=== PATIENT | female | born 1945 | race Caucasian/White ===

== ENCOUNTER 2017-09-04 08:11 | Outpatient (CLI) | payer MEDICARE, OTHER | END 2017-09-04 08:12 | disposition home or self-care (01) | LOC: BICMAMMO 08:11 | PROVIDERS: ATTEND Family Medicine | DX: Z12.31 Encounter for screening mammogram for malignant neoplasm of breast (principal); R92.1 Mammographic calcification found on diagnostic imaging of breast | CPT/HCPCS: 77063; 77067 ==

== ENCOUNTER 2018-07-27 01:19 | Emergency (ER) | payer MEDICARE, OTHER ==
[~2018-07-27 01:19] MED LIST: EPINEPHrine 1 MG/10 ML Abboject SYRINGE ONE; Sodium Bicarb 50 MEQ/50 ML Abboject 8.4% SYRINGE ONE
== END 2018-07-27 01:30 | disposition expired ==
LOC: ERS 01:19
DX: I46.9 Cardiac arrest, cause unspecified (principal)
CPT/HCPCS: 96374; 96375; J0171